=== PATIENT | female | born 1975 | race Caucasian/White ===

== ENCOUNTER → 2021-12-07 | Outpatient (CLI) | payer BC | LOC: MAMMO 13:37 | PROVIDERS: ATTEND Internal Medicine | DX: Z12.31 Encounter for screening mammogram for malignant neoplasm of breast (principal) | CPT/HCPCS: 77067 ==

== ENCOUNTER → 2021-12-29 | Outpatient (CLI) | payer BC | LOC: MAMMO 13:34 | PROVIDERS: ATTEND Internal Medicine | DX: R92.8 Other abnormal and inconclusive findings on diagnostic imaging of breast (principal) ==

== ENCOUNTER → 2022-12-29 | Outpatient (CLI) | payer BC | LOC: MAMMO 14:15 | PROVIDERS: ATTEND Internal Medicine | DX: Z12.31 Encounter for screening mammogram for malignant neoplasm of breast (principal) | CPT/HCPCS: 77067 ==